=== PATIENT | male | born 1995 | race Caucasian/White ===

== ENCOUNTER 2020-01-21 17:22 | Emergency (ER) | payer BC ==
[2020-01-21 17:27] VITALS: TEMP 97.9
[2020-01-21] MEDS ORDERED: DIPH,PERTUS(ACELL)TETVAC-LF 0.5 ML VIAL IM ONE (17:34)
[2020-01-21] MEDS ORDERED: LIDOCAINE 1% INJ 10MG/ML (20 ML MDV) SQ ONE (17:34)
[2020-01-21] MEDS ORDERED: SODIUM CHLORIDE 0.9% 1,000 ML IV ONE (17:36)
--- NOTE | 2020-01-21 19:08 | ED ---
Wound/Laceration HPI - General Chief Complaint: Wound/Laceration Stated Complaint: Arm lac Time Seen by Provider: 01/21/20 17:29 Source: patient Mode of arrival: wheelchair Limitations: no limitations - History of Present Illness Initial Comments: 24-year-old male presents today for left wrist laceration. Patient states he slipped while he was using a knife. Patient states that this was not intentional. Patient states his bleeding he quickly recovered and presented to the ER for evaluation. Patient states that he do not assess a very much. Marcelo nt was presyncopal upon arrival stating he does not like to look at blood. Taken to room and IV access established/laid flat. - Related Data Allergies Allergy/AdvReac Type Severity Reaction Status Date / Time No Known Allergies Allergy Verified 01/21/20 17:27 Review of Systems ROS Statement: Those systems with pertinent positive or pertinent negative responses have been documented in the HPI. ROS Other: All systems not noted in ROS Statement are negative. Past Medical History Past Medical History: No Reported History History of Any Multi-Drug Resistant Organisms: None Reported Additional Past Surgical History / Comment(s): lip Past Psychological History: No Psychological Hx Reported Smoking Status: Never smoker Past Alcohol Use History: Occasional Past Drug Use History: None Reported General Exam - General Exam Comments Initial Comments: General: The patient is awake and alert, in no distress, and does not appear acutely ill. Eye: Pupils are equal, round and reactive to light, extra-ocular movements are intact. No nystagmus. There is normal conjunctiva bilaterally. No signs of icterus. Musculoskeletal: Normal ROM, no tenderness. Strength 5/5. Sensation intact. Radial pulses equal bilaterally 2+. Neurological: A&O x 3. CN II-XII intact grossly, There are no obvious motor or sensory deficits. Coordination appears grossly intact. Speech is normal. Skin: Skin is warm and dry and no rashes. 3cm laceration superficial but tissue edges do not approximate well-bleeding controlled. Psychiatric: Cooperative, appropriate mood & affect, normal judgment. Limitations: no limitations Course Vital Signs 01/21/20 01/21/20 01/21/20 17:24 17:32 17:45 Temperature 97.9 F Pulse Rate 57 L 59 L 57 L Respiratory 18 18 18 Rate Blood Pressure 72/45 129/83 133/91 O2 Sat by Pulse 99 Oximetry 01/21/20 01/21/2001/20/20 18:00 18:30 19:59 Temperature Pulse Rate 62 62 58 L Respiratory 18 15 Rate Blood Pressure 136/91 133/91 129/86 O2 Sat by Pulse 100 Oximetry Procedures - Laceration Laceration #1 Consent Obtained: verbal consent Indication: laceration Site: upper extremity Size (cm): 3 Description: linear Depth: simple, single layer Anesthetic Used: lidocaine 1% Anesthesia Technique: local infiltration Amount (mls): 1 Pre-repair: wound explored, irrigated extensively, deep structures intact Type of Sutures: nylon Size of Sutures: 4-0 Number of Sutures: 6 Medical Decision Making - Medical Decision Making 24yo female presenting today for cc of left wrist pain. Arm repaired. Irrigated, cleansed prior. Patient tolerated procedure well. Patient advised to intact this laceration is very superficial. Patient tdap updated. Patient has initial vasovagal, however BP and clinical appearance improved. Disposition Clinical Impression: Laceration of left wrist Disposition: HOME SELF-CARE Condition: Good Instructions (If sedation given, give patient instructions): Care For Your Stitches (ED), Laceration (ED) Additional Instructions: Please use medication as discussed. Please follow-up with family doctor in the next 2 days, return for suture removal in 7-10 days-no swimming or submerging the wound in water please. Please return to emergency room if the symptoms increase or worsen or for any other concerns. Is patient prescribed a controlled substance at d/c from ED?: No Referrals: None,Stated [Primary Care Provider] - 1-2 days Time of Disposition: 19:08
[2020-01-21 20:00] VITALS: BP 129/86; PULSE 58; RESP 15
== END 2020-01-21 19:34 | disposition home or self-care (01) ==
LOC: EC 17:22
DX: S61.512A Laceration without foreign body of left wrist, initial encounter (principal); Z23 Encounter for immunization; W26.0XXA Contact with knife, initial encounter
CPT/HCPCS: 90715; 99282; 12002; 90471; 96360; J2001

== ENCOUNTER → 2020-09-03 | Outpatient (CLI) | payer BC ==
--- NOTE | 2020-09-03 08:35 | CT ---
EXAMINATION TYPE: CT sinus wo con DATE OF EXAM: 09/03/2020 COMPARISON: HISTORY: 25-year-old male J3 4.[address] DLP: 550.8 mGycm Automated exposure control for dose reduction was used. TECHNIQUE: Noncontrast axial views of the paranasal sinuses were obtained. Coronal reconstructions pe rformed. FINDINGS: PARANASAL SINUSES: Minimal trace mucosal thickening medial floor of the right maxillary sinus and within the anterior et hmoid air cells. Otherwise, the frontal and sphenoid sinuses are clear and well pneumatized. There is no air-fluid level. Reactive fermín- osteogenesis is not seen. There is no destruction of the osseous rosario of the paranasal sinuses. THE NASAL CAVITY: The osteomeatal complexes are patent. Slight undulation of the nasal septum. The imaged brain and orbits show no gross abnormality. The visualized mastoid air cells and middle ear cavities are well pneumatized. Reformatted images confirm above findings. IMPRESSION: 1. Slight undulation of the nasal septum. 2. Only minimal trace mucosal thickening right maxillary sinus and anterior ethmoid air cells.
== END | disposition home or self-care (01) ==
LOC: RADCTMAIN 07:25
PROVIDERS: ATTEND Family Medicine
DX: J34.2 Deviated nasal septum (principal)
CPT/HCPCS: 70486

== ENCOUNTER → 2022-03-25 | Outpatient (CLI) | payer BC ==
--- NOTE | 2022-03-25 20:15 | CT ---
EXAMINATION TYPE: CT chest wo con CT DLP: 252.9 mGycm, Automated exposure control for dose reduction was used. DATE OF EXAM: 03/25/2022 6:29 PM COMPARISON: CT abdomen pelvis 03/05/2022. CLINICAL INDICATION:Male, 27 years old with history of R91.8 ABNORMAL LUNG FIELD; [facility], Abnormal lung findings found on prior CT TECHNIQUE: Multiple axial images were obtained through the chest. Sagittal and coronal reformats were created for review. Contrast used: none. Oral contrast used: none. FINDINGS: LUNGS/ PLEURA: Similar left lower lobe 5 mm pulmonary nodule on with a more peripheral anterior 4 mm pulmonary nodule series 4 image 33 and image 58. Similar right lower lobe 5 mm pulmonary nodule serie s 4 image 62. Bilateral intrafissural lymph node series 4 image 39. No evidence focal consolidation, pneumothorax or pleural effusion. AIRWAY: Patent and unremarkable. HEART: Size within normal limits. MEDIASTINUM: No gross evidence of adenopathy. VASCULATURE: No aortic aneurysm. MUSCULOSKELETAL: No acute osseous abnormalities SOFT TISSUES/LYMPH NODES: Unremarkable. LOWER NECK: No significant findings. UPPER ABDOMEN: No significant findings. IMPRESSION: Stable bilateral lower lobe pulmonary nodules. Findings likely representing benign etiology such as g ranulomatous disease. In a patient of 27 years old without risk factors. If there remains further con cern consider one-year follow-up CT chest.
== END | disposition home or self-care (01) ==
LOC: RADCTMAIN 18:12
PROVIDERS: ATTEND Family Medicine
DX: R91.8 Other nonspecific abnormal finding of lung field (principal)
CPT/HCPCS: 71250

== ENCOUNTER 2022-04-25 07:28 | Day surgery (SDC) | payer BC ==
[2022-04-24 10:15] VITALS: BMI 20.3
[~2022-04-25 07:28] MED LIST: LACTATED RINGERS 1,000 ML IV SCH
[2022-04-25 08:06] VITALS: TEMP 96.9
[2022-04-25] MEDS ORDERED: LIDOCAINE 2% INJ 20 MG/ML (2 ML VIAL) ONE (08:55)
[2022-04-25] MEDS ORDERED: PROPOFOL 10 MG/ML 20 ML VIAL IV ONE (08:55)
--- NOTE | 2022-04-25 09:06 | P.PCN ---
Date of Procedure: 04/25/22 Procedure(s) Performed: BRIEF HISTORY: Patient is a 27-year-old, pleasant, male scheduled for an upper endoscopy as a part of evaluation of chronic epigastric pain for the last 2 months duration. He was started on Protonix 40 mg daily in February with no help. It was increased to twice daily and still continues remains symptomatic and hence scheduled for an upper endoscopy to evaluate further.. PROCEDURE PERFORMED: Esophagogastroduodenoscopy with biopsy. PREOPERATIVE DIAGNOSIS: Chronic epigastric pain of 3 months. IV sedation per anesthesia. PROCEDURE: After informed consent was obtained, the patient was brought into the endoscopy unit. IV sedation was administered by Anesthesia under continuous monitoring. Initially the Olympus GIF-140 video endoscope was inserted into the mouth. Esophagus intubated without any difficulty. It was gradually advanced into the stomach and duodenum and carefully examined. The bulb and the second part of the duodenum appeared normal. The scope at this time was withdrawn to the stomach, adequately insufflated with air, and upon careful examination, mucosa of the antrum, had patchy areas of erythema and biopsies were done from this area. body, cardia and the fundus appeared normal. The scope was then withdrawn into the esophagus. Small sliding type hiatal hernia noted. The GE junction was located at 41 cm from the incisors. The esophagus appeared normal. There were no erosions or ulcerations seen, biopsies were done from the distal esophagus and the patient tolerated the procedure well. IMPRESSION: 1. Small sliding type hiatal hernia but no evidence of esophagitis. 2. Minimal antral gastritis. RECOMMENDATIONS: The findings of this examination were discussed with the patient as well as his family. He was advised to follow with the biopsy results. Continue with Protonix 40 mg twice daily and follow antireflux measures. Follow up in office in 3-4 weeks.
[2022-04-25 09:13] VITALS: RESP 16
[2022-04-25 09:50] VITALS: BP 130/80; PULSE 62
== END 2022-04-25 09:51 | disposition home or self-care (01) ==
LOC: ORWHC2ENDO 07:28
PROVIDERS: ATTEND Internal Medicine Gastroenterology
DX: K29.50 Unspecified chronic gastritis without bleeding (principal); K21.00 Gastro-esophageal reflux disease with esophagitis, without bleeding; K44.9 Diaphragmatic hernia without obstruction or gangrene; F17.210 Nicotine dependence, cigarettes, uncomplicated
CPT/HCPCS: 88305; 43239; J2704; J2001

== ENCOUNTER → 2022-06-25 | Outpatient (CLI) | payer BC ==
[2022-06-25 18:22] LABS: Basophils # (A) 0.02 X 10*3/uL (0.00-0.10); Basophils % (A) 0.6 %; Eosinophils # (A) 0.04 X 10*3/uL (0.04-0.35); Eosinophils % (A) 1.2 %; HCT 46.8 % (39.6-50.0); HGB 15.2 g/dL (13.0-17.0); Immature Grans, Automated 0 %; Lymphocytes # (A) 1.46 X 10*3/uL (0.90-5.00); Lymphocytes % (A) 43.3 %; MCH 28.6 pg (27.0-32.0); MCHC 32.5 g/dL (32.0-37.0); Mean Platelet Volume 12.1 fL (9.5-12.2); Monocytes % (A) 5.9 %; NRBC Per 100 WBC 0 /100 WBCS (0.0-0.0); Neutrophils # (A) 1.65 X 10*3/uL (1.80-7.70); Platelet Count 163 X 10*3/uL (140-440); RBC 5.32 X 10*6/uL (4.40-5.60); RDW 13.3 % (11.5-14.5); WBC 3.37 X 10*3/uL (4.50-10.00)
[2022-06-25 18:57] LABS: Erythrocyte Sedimentation Rate 5 mm/Hr (0-15)
[2022-06-26 02:04] LABS: ALT 25 U/L (10-49); AST 23 U/L (14-35); Albumin 4.7 g/dL (3.8-4.9); Albumin/Globulin Ratio 2.09 (1.60-3.17); Alkaline Phosphatase 80 U/L (41-126); Bilirubin, Conjugated <0.20 mg/dL (0.20-0.40); C Reactive Protein <0.30 mg/dL (0.00-0.80); GGT 27 U/L (0-73); Globulin 2.3 g/dL (1.6-3.3)
[2022-06-26 04:04] LABS: EBV-EA (IgG) 0.3 AI; EBV-EBNA(IgG) >8.0 AI; EBV-VCA (IgG) 5.2 AI; EBV-VCA (IgM) 0.6 AI
== END | disposition home or self-care (01) ==
LOC: LABWHC1 11:41
PROVIDERS: ATTEND Family Medicine
DX: R74.01 Elevation of levels of liver transaminase levels (principal); R59.0 Localized enlarged lymph nodes
CPT/HCPCS: 36415; 80076; 82728; 82977; 85025; 85652; 86140; 86644; 86645; 86663; 86664; 86665

== ENCOUNTER → 2025-01-16 | Outpatient (CLI) | payer BC ==
--- NOTE | 2025-01-16 18:56 | CT ---
EXAMINATION TYPE: CT chest wo con DATE OF EXAM: 01/16/2025 6:08 PM COMPARISON: CT 03/25/2022 CLINICAL INDICATION: Male, 29 years old with history of R91.8 ABN FINDINGS LUNG FIELD; PH[facility], follow up lung nodule TECHNIQUE: Multiple axial images were obtained through the chest. Sagittal and coronal reformats were created for review. MIP was performed on a separate workstation. Contrast used: mL of (None if empty) Oral contrast used: (None if empty) CT DLP: 488.9 mGycm, Automated exposure control for dose reduction was used. FINDINGS: LUNGS/ PLEURA: Left lower lobe lateral pulmonary nodule has nearly resolved from prior. Right lower l obe pulmonary nodule has nearly are also resolved. No evidence focal consolidation, pneumothorax or pleural effusion. AIRWAY: Patent and unremarkable. HEART: Size within normal limits. MEDIASTINUM: No gross evidence of adenopathy. VASCULATURE: No aortic aneurysm. MUSCULOSKELETAL: No acute osseous abnormalities SOFT TISSUES/LYMPH NODES: Unremarkable. LOWER NECK: No significant findings. UPPER ABDOMEN: No significant findings. IMPRESSION: There has been interval decrease in size/near resolution of prior pulmonary nodules on 03/25/2022. No new nodules identified. No acute thoracic process. No follow-up recommended. [facility], , 01/16/2025 6:53 PM
== END | disposition home or self-care (01) ==
LOC: RADCTMAIN 16:50
PROVIDERS: ATTEND Family Medicine
DX: R91.8 Other nonspecific abnormal finding of lung field (principal)
CPT/HCPCS: 71250